=== PATIENT | female | born 1970 | race Caucasian/White ===

== ENCOUNTER 2017-10-19 23:06 | Emergency (ER) | payer BC, SELFPAY ==
[2017-10-19 23:21] VITALS: BP 105/64; PULSE 69; RESP 18; TEMP 37.4; O2SAT 99
--- NOTE | 2017-10-19 23:29 | DI.RAD.S_ITS ---
PROCEDURE: XR CHEST 2V INDICATIONS: shortness of breath TECHNIQUE: 2 views of the chest were acquired. COMPARISON: None. FINDINGS: Surgical changes and devices: Surgical clips overlies the left superior mediastinum. Lungs and pleura: No pleural effusions or pneumothorax. Lungs are clear. Mediastinum: Mediastinal contours are normal. Heart size is normal. Bones and chest wall: No suspicious bony abnormalities. Soft tissues appear unremarkable. IMPRESSION: No acute cardiopulmonary abnormality. Dictated by: Dylan Mendoza M.D. on 10/20/2017 at 8:20 Approved by: Dylan Mendoza M.D. on 10/20/2017 at 8:21
--- NOTE | 2017-10-20 01:27 | ED.SOB ---
HPI - SOB/Dyspnea General Chief Complaint: Shortness of Breath/Dyspnea Stated Complaint: COUGH, SICK Time Seen by Provider: 10/20/17 01:17 Source: patient Mode of arrival: ambulatory Limitations: no limitations History of Present Illness Patient is a 47-year-old female who presents with difficulty breathing. She feels like her neck is spasming. She said she had a fever about 1 week ago she has had increased fatigue for about a week. No documented fever. She feels like clock work her neck start spasming and she can't breathe. She overall feels tired and just not getting any better. No productive cough. She denies any sore throat MD Complaint: cough (Dry) Related Data Home Medications Medication Instructions Recorded Confirmed guaifenesin [Mucinex] 600 mg PO Q12H 10/19/17 10/19/17 Previous Rx's Medication Instructions Recorded doxycycline hyclate 100 mg PO BID #14 cap 10/20/17 prednisone 40 mg PO DAILY #10 tab 10/20/17 Allergies Allergy/AdvReac Type Severity Reaction Status Date / Time No Known Drug Allergies Allergy Verified 10/19/17 23:28 Review of Systems Review of Systems Constitutional Reports as per HPI, Reports fatigue, Reports fever(s) and Reports lethargy Eyes Denies change in vision, Denies eye discharge, Denies irritation and Denies loss of vision Cardiovascular Denies chest pain, Denies irregular heart rhythm, Denies lightheadedness, Denies palpitations and Denies orthopnea Respiratory Reports as per HPI Gastrointestinal Gastrointestinal: Denies abdominal pain, Denies change in bowel habits, Denies diarrhea, Denies nausea and Denies vomiting Musculoskeletal Denies back pain, Denies muscle weakness, Denies numbness and Denies tingling Integumentary/Breasts Denies pruritus, Denies erythema, Denies rash and Denies wounds Neurologic Denies loss of vision, Denies numbness and Denies tingling Endocrine Reports fatigue and Denies palpitations PFSH Medical History Neuroblastoma (Acute) Thyroid nodule (Acute) Social History Smoking Status: Never smoker Exam Initial Vital Signs Initial Vital Signs: Vital Signs Temperature 99.4 F 10/19/17 23:21 Pulse Rate 69 10/19/17 23:21 Respiratory Rate 18 10/19/17 23:21 Blood Pressure 105/64 10/19/17 23:21 Pulse Oximetry 99 10/19/17 23:21 GENERAL: Well-appearing, well-nourished and in no acute distress. HEENT: Head atraumatic,EOMI, pupils reactive, face symmetric, moist mucous membranes PHARYNX: No erythema, no tonsillar exudate, no cervical lymphadenopathy CARDIOVASCULAR: Regular rate and rhythm without murmurs, rubs or gallops. RESPIRATORY: Breath sounds equal bilaterally, no wheezes rales or rhonchi. ABDOMEN: Soft, nontender. Normoactive bowel sounds all 4 quadrants. No guarding or rebound. EXTREMITIES: Normal range of motion, no clubbing or edema. Neurovascularly intact NEUROLOGICAL: Alert and oriented x4.Normal gait and speech. Cranial nerves II through XII grossly intact. SKIN: Warm, dry, no laceration, no petechiae, no rashes or lesions. Course Orders Ordered: ED Orders 10/19/17 23:29 XR chest 2V Stat Discontinued Medications Albuterol (Ventolin) 2.5 mg INH NOW ONE Stop: 10/20/17 01:29 Last Admin: 10/20/17 01:39 Dose: 2.5 mg Albuterol (Ventolin Hfa Prepack) 1 box MISC SEEINSTR ONE Stop: 10/20/17 01:40 Last Admin: 10/20/17 01:41 Dose: 1 box Vital Signs - 8 hr 10/19/17 23:21 10/20/17 01:42 10/20/17 02:07 Temperature 99.4 F Pulse Rate 69 66 75 Respiratory Rate 18 16 18 Blood Pressure 105/64 Blood Pressure [Left Arm] 108/53 L Pulse Oximetry 99 98 MDM - SOB/Dyspnea Imaging Data Chest x-ray: Attestation: I personally reviewed and interpreted this imaging study as follows: My impression: No acute cardiopulmonary process she is feeling slightly better after albuterol. This has been ongoing for at least 1 week. Bronchospasm likely however due to severe fatigue will treat with atypical MDM Narrative Medical decision making narrative: Feeling much better after bronchodilators. She is taught by Respiratory how to use a spacer. At this time will treat for atypical pneumonia with doxycycline and bronchospasm with prednisone and albuterol. Discharge Plan Departure Patient Disposition: Home, Self-Care Clinical Impression: Atypical pneumonia Discharge Date/Time: 10/20/17 02:21 Interventions: ED Discharge Assessment Last Done: 07/27/18 02:20 Instructions: Atypical Pneumonia Activity Restrictions/Additional Instructions: *You have been diagnosed with atypical pneumonia, bronchitis *What to do: Rest, hydrate *Continue to take medications as directed -doxycycline 1 tablet twice a day for 1 week -prednisone 40 mg once a day for 5 days -albuterol every 4 hr with spacer if needed for spasm or shortness of breath *Follow up with your primary care provider in 2-3 days *Return to ER if you should have increasing shortness of breath, persistent fever or any new, worsening or concerning symptoms Prescriptions: New doxycycline hyclate 100 mg capsule 100 mg PO BID Qty: 14 RF: 0 prednisone 20 mg tablet 40 mg PO DAILY Qty: 10 RF: 0 No Action guaifenesin [Mucinex] 600 mg Tablet Extended Release 12hr 600 mg PO Q12H RF: 0 Referrals: [facility] [Outside]
[2017-10-20] MEDS: ALBUTEROL 2.5 MG/3 ML NEB (ADULT) INH (01:39)
[2017-10-20] MEDS: ALBUTEROL HFA PREPACK 1 BOX MISC (01:41)
[2017-10-20 01:42] VITALS: PULSE 66; RESP 16
[2017-10-20 02:07] VITALS: BP 108/53; PULSE 75; RESP 18; O2SAT 98
== END 2017-10-20 02:21 | disposition home or self-care (01) ==
PROVIDERS: Emergency Provider Emergency Medicine
DX: J18.9 Pneumonia, unspecified organism (principal)
CPT/HCPCS: 71046; 94640; 99282; 99283; J7613

== ENCOUNTER → 2019-04-18 09:33 | Outpatient (CLI) | payer BC, SELFPAY ==
--- NOTE | 2019-04-18 09:37 | DI.MG.S_ITS ---
BILATERAL DIGITAL SCREENING MAMMOGRAM 3D/2D WITH CAD: 04/18/2019 CLINICAL: Routine screening. Comparison is made to exams dated: 11/22/2016 mammogram, 09/24/2015 mammogram, 05/02/2016 mammogram, 09/15/2015 mammogram, and 05/07/2014 [facility]. The tissue of both breasts is heterogeneously dense. This may lower the sensitivity of mammography. Current study was also evaluated with a Computer Aided Detection (CAD) system. No significant masses, calcifications, or other findings are seen in either breast. There has been no significant interval change. IMPRESSION: NEGATIVE There is no mammographic evidence of malignancy. A 1 year screening mammogram is recommended. This exam was interpreted at Station ID: [id number]. NOTE: For mammograms, a report in lay terms will be sent to the patient. Approximately 15% of breast malignancies will not be visualized mammographically. In the management of a palpable breast mass, a negative mammogram must not discourage biopsy of a clinically suspicious lesion. Electronically Signed By: Bill bentley/terry:04/18/2019 18:37:58 letter sent: Normal Exam ACR BI-RADS Category 1: Negative 3341F
== END ==
PROVIDERS: Visit Provider Obstetrics & Gynecology
DX: Z12.31 Encounter for screening mammogram for malignant neoplasm of breast (principal)
CPT/HCPCS: 77063; 77067

== ENCOUNTER → 2020-03-16 09:09 | Outpatient (CLI) | payer BC, SELFPAY ==
--- NOTE | 2020-03-16 09:10 | DI.US.S_ITS ---
PROCEDURE: US PELVIC COMPLETE INDICATIONS: FIBROIDS TECHNIQUE: Real-time scanning was performed of the pelvic organs, with image documentation. Additional endovaginal scanning was necessary due to incomplete visualization of the adnexal and endometrial structures by transabdominal scanning. COMPARISON: None. FINDINGS: Transabdominal scanning: Limited scanning through the kidneys shows no hydronephrosis. No pathologic free abdominal or pelvic fluid. Endovaginal scanning: Uterus: Uterus is normal in size at 6.3 x 5.9 by 8.7 cm, retroverted. The endometrium measures 11.4 mm in combined thickness. Myometrial echotexture is heterogeneous, and there are several scattered uterine fibroids. At the midline posteriorly a subserosal 1.2 cm maximal dimension [place] oil can be seen. On the left and intramural 1.5 cm maximal dimension fibroid can be seen. Several nabothian cysts at the cervix are noted. Ovaries: The right ovary measures 2.1 x 1.7 x 4.4 cm and the left measures 2.0 x 1.7 x 4.7 cm. IMPRESSION: Heterogeneous myometrium, with several small uterine fibroids incidentally noted. No endometrial mass is seen. The endometrial lining is of abnormal thickness for a postmenopausal patient. Please correlate clinically for menopausal status. Dictated by: Eduardo Cameron M.D. on 03/16/2020 at 14:06 Approved by: Eduardo Cameron M.D. on 03/16/2020 at 14:16
== END ==
PROVIDERS: Referring Provider Obstetrics & Gynecology; Visit Provider Obstetrics & Gynecology
DX: D25.2 Subserosal leiomyoma of uterus (principal); D25.1 Intramural leiomyoma of uterus; N88.8 Other specified noninflammatory disorders of cervix uteri; R93.89 Abnormal findings on diagnostic imaging of other specified body structures
CPT/HCPCS: 76856

== ENCOUNTER → 2020-04-25 09:02 | Outpatient (CLI) | payer BC, SELFPAY ==
--- NOTE | 2020-04-25 09:03 | DI.MG.S_ITS ---
BILATERAL DIGITAL SCREENING MAMMOGRAM 3D/2D WITH CAD: 04/25/2020 CLINICAL: Routine screening. Family history of breast cancer. Comparison is made to exams dated: 04/18/2019 mammogram - [facility], 11/22/2016 mammogram, and 05/02/2016 [facility] - [facility]. The tissue of both breasts is heterogeneously dense. This may lower the sensitivity of mammography. Current study was also evaluated with a Computer Aided Detection (CAD) system. No significant masses, calcifications, or other findings are seen in either breast. There has been no significant interval change. IMPRESSION: NEGATIVE There is no mammographic evidence of malignancy. A 1 year screening mammogram is recommended. This exam was interpreted at Station ID: [id number]. NOTE: For mammograms, a report in lay terms will be sent to the patient. Approximately 15% of breast malignancies will not be visualized mammographically. In the management of a palpable breast mass, a negative mammogram must not discourage biopsy of a clinically suspicious lesion. Electronically Signed By: Diaz roman/terry:04/27/2020 08:33:37 letter sent: Normal Exam ACR BI-RADS Category 1: Negative 3341F
== END ==
PROVIDERS: PCP Family Medicine; Referring Provider Obstetrics & Gynecology; Visit Provider Obstetrics & Gynecology
DX: Z12.31 Encounter for screening mammogram for malignant neoplasm of breast (principal); Z80.3 Family history of malignant neoplasm of breast
CPT/HCPCS: 77063; 77067

== ENCOUNTER → 2021-07-09 14:59 | Outpatient (CLI) | payer OTHER, SELFPAY ==
--- NOTE | 2021-07-09 15:02 | DI.MG.S_ITS ---
BILATERAL DIGITAL SCREENING MAMMOGRAM 3D/2D WITH CAD: 07/09/2021 CLINICAL: Routine screening. Family history of breast cancer. Comparison is made to exams dated: 04/25/2020 mammogram, 04/18/2019 mammogram - [facility], and 11/22/2016 mammogram - [facility]. The tissue of both breasts is heterogeneously dense. This may lower the sensitivity of mammography. Current study was also evaluated with a Computer Aided Detection (CAD) system. No significant masses, calcifications, or other findings are seen in either breast. There has been no significant interval change. IMPRESSION: NEGATIVE There is no mammographic evidence of malignancy. A 1 year screening mammogram is recommended. This exam was interpreted at Station ID: [id number]. NOTE: For mammograms, a report in lay terms will be sent to the patient. Approximately 15% of breast malignancies will not be visualized mammographically. In the management of a palpable breast mass, a negative mammogram must not discourage biopsy of a clinically suspicious lesion. Electronically Signed By: Modesto Monsalve acr/penrad:07/09/2021 15:32:59 letter sent: Normal Exam ACR BI-RADS Category 1: Negative 3341F
== END ==
PROVIDERS: PCP Family Medicine; Referring Provider Obstetrics & Gynecology; Visit Provider Obstetrics & Gynecology
DX: Z12.31 Encounter for screening mammogram for malignant neoplasm of breast (principal); Z80.3 Family history of malignant neoplasm of breast
CPT/HCPCS: 77063; 77067

== ENCOUNTER → 2021-10-07 14:28 | Outpatient (CLI) | payer OTHER, SELFPAY ==
[2021-10-07 14:52] LABS: COVID19 -Nasal RAPID Negative (Negative)
== END ==
PROVIDERS: PCP Family Medicine; Visit Provider Surgery
DX: Z01.812 Encounter for preprocedural laboratory examination (principal); Z20.822 Contact with and (suspected) exposure to COVID-19
CPT/HCPCS: 87635; C9803

== ENCOUNTER 2021-10-08 08:07 | Day surgery (SDC) | payer OTHER, SELFPAY ==
[2021-10-08 08:23] VITALS: BP 113/69; PULSE 78; RESP 16; TEMP 36.2; O2SAT 98
--- NOTE | 2021-10-08 09:20 | PM.HP.1 ---
History of Present Illness History of Present Illness Date Patient Seen: 10/08/21 Time Patient Seen: 09:20 Chief complaint: SDC Narrative: first colonoscopy for colon cancer screening. No family history or symptoms Patient History Medical History Neuroblastoma Thyroid nodule Vaginal delivery Family & Social History Social History: household members children Tobacco & Substance use: Smoking Status Never smoker alcohol intake frequency holiday/special occasion Substance Use Type does not use Meds Home Medications and Allergies Home Medications Medication Instructions Recorded Confirmed Type sodium,potassium,mag sulfates 17.5 See Rx Instructions PO .COMPLEX 09/22/21 Rx gram-3.13 gram-1.6 gram oral soln #354 mL (Suprep Bowel Prep Kit) Allergies Allergy/AdvReac Type Severity Reaction Status Date / Time No Known Drug Allergies Allergy Verified 10/08/21 07:58 Review of Systems Review of Systems ROS: Yes All systems reviewed with the patient and are negative except as otherwise documented Exam Vital Signs (past 8 hours): - 10/08/21 08:23 Temperature 97.2 F L Pulse Rate 78 Respiratory Rate 16 Blood Pressure 113/69 Pulse Oximetry 98 Oxygen Delivery Method Room Air Oxygen Delivery Method Room Air Const General: cooperative and healthy appearing Nutritional Appearance: average body habitus HENIA Head: normocephalic and atraumatic Eyes Other: 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 Neck Neck: trachea midline Chest Chest: normal inspection of the chest Resp Effort & Inspection: normal respiratory effort and able to speak in complete sentences Cardio Rate: regular rate Rhythm: regular rhythm GI Inspection: normal to inspection Palpation: soft Skin General: no rashes or lesions noted and elasticity normal Neuro General: patient alert, patient awake and patient oriented x3 Extrem General: normal to inspection Psych Appearance: grossly normal Attitude: cooperative Judgment: judgment good Assessment & Plan Assessment & Plan narrative: screening for colon cancer using colonoscopy and moderate sedation COVID-19 COVID-19 status: Negative Time Spent With Patient Time with patient: less than 30 minutes Critical Care time: I spent a total of [] minutes of critical care time on this patient's care today; this time is exclusive of procedural time.
[2021-10-08] MEDS: fentaNYL 250 MCG/5 ML INJ 125 MCG IV (09:42)
[2021-10-08] MEDS: MIDAZOLAM 5 MG/5 ML VIAL IV (09:43)
--- NOTE | 2021-10-08 09:48 | PM.OP.COLON ---
Operative Date/Time/Diagnoses Date of procedure: 10/08/21 Time of procedure: 09:48 Pre-op diagnosis: Colon cancer screening Post-op diagnosis: same Procedure & Clinicians Study performed: Colonoscopy with moderate sedation Same procedure as scheduled: Yes Indications: Colon cancer screening Surgeon: Danyell Leija Procedure Notes SCOAP/Timeout: Done Procedure in detail: Prep diagnosis: Colon cancer screening Postop diagnosis: Same Operative procedure: Colonoscopy with moderate sedation Surgeon: Camila Leija MD Anesthetic: Fentanyl 125 mcg, Versed 5 mg. Findings: Normal colon. No polyps Procedure: Patient placed in lateral position. Rectal exam performed showing normal tone no masses. Colonoscope inserted into the rectum and advanced to ileocecal valve with minimal difficulty. Insufflation and extraction of scope including retroflex had the above findings Impression: Normal colonoscopy. Plan: Repeat colonoscopy in 10 years unless otherwise indicated by change in family history or clinical condition Sedation minutes: 14 Specimen(s): none sent Complications: none Post-procedure Recommendations: Colonoscopy in 10 years Follow up: as needed Disposition: PACU
[2021-10-08 09:50] VITALS: BP 89/52; PULSE 66; RESP 14; TEMP 36.4; O2SAT 96
[2021-10-08 09:55] VITALS: BP 97/53; PULSE 66; RESP 14; O2SAT 98
[2021-10-08 10:00] VITALS: BP 93/52; PULSE 63; RESP 16; O2SAT 97
[2021-10-08 10:09] VITALS: BP 96/53; PULSE 60; RESP 16; O2SAT 98
--- NOTE | 2021-10-08 10:17 | SUR.PHASEII ---
Pt A&Ox4, denies any distress and ready to discharge home. Discharge instructions reviewed with pt with time allowed for questions. IV DC'd intact. Pt left unit with all personal belongings to ER exit to meet family to transport home.
--- NOTE | 2021-10-08 10:18 | SUR.PHASEII ---
1L IVF infused, was not scanned prior to arrival to PACU
== END 2021-10-08 10:15 | disposition home or self-care (01) ==
PROVIDERS: PCP Family Medicine; Referring Provider Surgery; Visit Provider Surgery
PROC: 0DJD8ZZ Inspection of Lower Intestinal Tract, Via Natural or Artificial Opening Endoscopic (ICD-10-PCS; CPT 45378; principal; 2021-10-08 09:15)
DX: Z12.11 Encounter for screening for malignant neoplasm of colon (principal)
CPT/HCPCS: G0121; 99152; J2250; J3010

== ENCOUNTER → 2023-05-22 09:30 | Outpatient (CLI) | payer OTHER, SELFPAY ==
[2023-05-22 11:05] LABS: Add Manual Diff / Slide Review NO; Basophils Absolute Auto 0 /uL (0-100); Basophils Percent Auto 0.9 % (0-2); Eosinophils Absolute Auto 0 /uL (0-450); Eosinophils Percent Auto 0.8 % (2-4); Hematocrit 37.9 % (36-46); Hemoglobin 12.6 g/dL (12.0-16.0); Lymphocytes Absolute Auto 1800 /uL (1100-4500); Lymphocytes Percent Auto 33.8 % (25-40); Mean Corpuscular HGB Conc 33.3 % (30-36); Mean Corpuscular Hemoglobin 29.6 PG (26-34); Mean Corpuscular Volume 88.8 fL (80-100); Monocytes Absolute Auto 600 /uL (0-900); Monocytes Percent Auto 10.7 % (3-14); Neutrophils Absolute Auto 2800 /uL (1500-7000); Neutrophils Percent Auto 53.8 % (50-75); Platelet Count 188 X10^3/uL (150-400); Red Blood Cell Count 4.26 X10^6/uL (4.0-5.2); White Blood Cell Count 5.2 X10^3/uL (4.5-11.0)
[2023-05-22 11:07] LABS: Alanine Aminotransferase 14 IU/L (<35); Albumin 4.5 g/dL (3.5-5.0); Albumin Globulin Ratio 1.4 (1.0-2.8); Alkaline Phosphatase 51 U/L (38-126); Aspartate Aminotransferase 23 IU/L (14-36); BUN Creatinine Ratio 23.8 (6-22); Bilirubin Total 0.6 mg/dL (0.2-1.3); Blood Urea Nitrogen 19 mg/dL (7-17); Calcium 11.1 mg/dL (8.4-10.2); Carbon Dioxide 23 mmol/L (22-32); Chloride 104 mmol/L (98-107); Cholesterol 212 mg/dL (140-199); Estimated Glomerular Filt Rate > 60 mL/min (>60); Globulin 3.3 g/dL (1.7-4.1); Glucose 85 mg/dL (70-100); HDL Cholesterol 62 mg/dL (40-60); HEMOLYSIS < 15 (0-50); LDL Cholesterol Calculated 133 mg/dL (<100); Potassium 4.7 mmol/L (3.4-5.1); Sodium 136 mmol/L (137-145); Total Protein 7.8 g/dL (6.3-8.2); Triglycerides 83 mg/dL (35-150)
[2023-05-22 11:34] LABS: TSH w/ Reflex to FT4 0.82 uIU/mL (0.47-4.68)
== END ==
PROVIDERS: PCP Family Medicine; Referring Provider Family Medicine; Visit Provider Family Medicine
DX: E04.1 Nontoxic single thyroid nodule (principal); C74.90 Malignant neoplasm of unspecified part of unspecified adrenal gland
CPT/HCPCS: 36415; 80053; 80061; 84443; 85025

== ENCOUNTER → 2023-05-24 16:14 | Outpatient (CLI) | payer OTHER, SELFPAY ==
--- NOTE | 2023-05-24 16:17 | DI.MG.S_ITS ---
BILATERAL DIGITAL SCREENING MAMMOGRAM 3D/2D WITH CAD: 05/24/2023 CLINICAL: Routine screening. Family history of breast cancer. Comparison is made to exams dated: 07/09/2021 mammogram, 04/25/2020 mammogram, 04/18/2019 mammogram - [facility], 09/24/2015 left breast ultrasound, and 09/15/2015 mammogram - [facility]. Both breasts are heterogeneously dense, which may obscure small masses (category c / 51-75% glandular tissue). Current study was also evaluated with a Computer Aided Detection (CAD) system. There is an oval asymmetry in the left breast posterior depth central to the nipple seen on the craniocaudal view only measuring 1.2 cm. This is more prominent and was not seen on the remote prior ultrasound. Left breast scar marker. No other significant masses, calcifications, or other findings are seen in either breast. IMPRESSION: INCOMPLETE: NEEDS ADDITIONAL IMAGING EVALUATION The oval asymmetry in the left breast is indeterminate. Additional views with possible ultrasound are recommended. Based on the Tyrer Cuzick model (a risk assessment model) the patient's lifetime risk is 13.6% and her 10 year risk is 3.5%. According to the ACR, ACS, and NCCN guidelines, an annual breast MRI exam along with mammogram is recommended if the patient's lifetime risk is 20% or greater. This exam was interpreted at Station ID: [id number]. NOTE: For mammograms, a report in lay terms will be sent to the patient. Approximately 15% of breast malignancies will not be visualized mammographically. In the management of a palpable breast mass, a negative mammogram must not discourage biopsy of a clinically suspicious lesion. Electronically Signed By: Bill Cervantes M.D. [facility] [employer]/:05/25/2023 10:29:58 letter sent: Additional Imaging Needed ACR BI-RADS Category 0: Incomplete 3340F
[2023-05-24 19:01] LABS: Vitamin D 25 Hydroxy (D3) 32.7 ng/mL (30.0-100.0)
[2023-05-26 17:40] LABS: Ionized Calcium 5.8 mg/dL (4.5-5.6)
[2023-05-28 01:15] LABS: Calcium 10.6 mg/dL (8.7-10.2); Parathyroid Hormone, Intact 104 pg/mL (15-65)
== END ==
PROVIDERS: PCP Family Medicine; Referring Provider Family Medicine; Visit Provider Family Medicine
DX: Z12.31 Encounter for screening mammogram for malignant neoplasm of breast (principal); R92.333 Mammographic heterogeneous density, bilateral breasts; Z80.3 Family history of malignant neoplasm of breast; C74.90 Malignant neoplasm of unspecified part of unspecified adrenal gland; E04.1 Nontoxic single thyroid nodule; E83.52 Hypercalcemia
CPT/HCPCS: 36415; 77063; 77067; 82306; 82310; 82330; 83970

== ENCOUNTER → 2023-06-09 12:53 | Outpatient (CLI) | payer OTHER, SELFPAY ==
--- NOTE | 2023-06-09 | DI.MG.S_ITS ---
UNILATERAL LEFT DIGITAL DIAGNOSTIC MAMMOGRAM 3D/2D WITH ADDITIONAL VIEWS: 06/09/2023 CLINICAL: Additional evaluation requested from prior study. Comparison is made to exams dated: 05/24/2023 mammogram, 07/09/2021 mammogram, and 04/25/2020 mammogram - [facility]. The left breast is heterogeneously dense, which may obscure small masses (category c / 51-75% glandular tissue). There is a focal asymmetry in the left breast at 5 o'clock posterior depth. This is seen in additional views. No other significant masses or calcifications are seen in the breast. IMPRESSION: INCOMPLETE: NEEDS ADDITIONAL IMAGING EVALUATION The focal asymmetry in the left breast likely represents a cyst and is indeterminate. A targeted ultrasound of the left breast is recommended and will be performed immediately following this exam. Based on the Tyrer Cuzick model (a risk assessment model) the patient's lifetime risk is 13.6% and her 10 year risk is 3.5%. According to the ACR, ACS, and NCCN guidelines, an annual breast MRI exam along with mammogram is recommended if the patient's lifetime risk is 20% or greater. This exam was interpreted at Station ID: [id number]. NOTE: For mammograms, a report in lay terms will be sent to the patient. Approximately 15% of breast malignancies will not be visualized mammographically. In the management of a palpable breast mass, a negative mammogram must not discourage biopsy of a clinically suspicious lesion. Electronically Signed By: Mervat Ribera M.D. lk/:06/09/2023 17:11:01 ACR BI-RADS Category 0: Incomplete 3340F
--- NOTE | 2023-06-09 12:54 | DI.US.S_ITS ---
LIMITED ULTRASOUND OF LEFT BREAST AND AXILLA: 06/09/2023 CLINICAL: Patient returns today to evaluate a focal asymmetry in the left breast. Comparison is made to exams dated: 06/09/2023 mammogram, 05/24/2023 mammogram, 07/09/2021 mammogram, 04/25/2020 mammogram, 04/18/2019 mammogram - [facility], and 11/22/2016 mammogram - [facility]. Color flow ultrasound of the left breast axilla was performed on the areas of interest. Franklin scale images of the real-time examination were reviewed. There is a simple cyst in the left breast at 5 o'clock posterior depth. This simple cyst is anechoic. This correlates with mammography findings. Color flow imaging demonstrates that there is no vascularity present. IMPRESSION: BENIGN There is no sonographic evidence of malignancy. The simple cyst in the left breast is benign. Return to annual mammogram screening schedule is recommended. This exam was interpreted at Station ID: [id number]. Electronically Signed By: Mervat kaur/:06/09/2023 17:14:09 letter sent: Normal Exam Ultrasound BI-RADS: 2 Benign
== END ==
LOC: MAMMO 12:54
PROVIDERS: PCP Family Medicine; Referring Provider Family Medicine; Visit Provider Family Medicine
DX: R92.8 Other abnormal and inconclusive findings on diagnostic imaging of breast (principal); N60.02 Solitary cyst of left breast; R92.332 Mammographic heterogeneous density, left breast
CPT/HCPCS: 76642; 77065; G0279

== ENCOUNTER → 2023-12-25 08:40 | Outpatient (CLI) | payer OTHER, SELFPAY ==
--- NOTE | 2023-12-25 08:43 | DI.US.S_ITS ---
PROCEDURE: US THYROID INDICATIONS: Hyperparathyroidism, unspecified TECHNIQUE: Real-time scanning was performed of the thyroid gland, with image documentation. COMPARISON: Outside Facility, US, US THYROID, 05/01/2019, 10:37. FINDINGS: Thyroid: Right lobe measures 7.0 x 2.7 x 2.0 cm. Left lobe measures 5.7 x 2.5 x 2.2 cm. Isthmus is 0.6 cm thick. Echotexture is heterogeneous with several nodules, some as described below. Nodule number: 1 Location: Left superior pole Size: 2.5 x 2.0 x 1.7 cm, previously 3.3 x 1.7 x 1.7 cm. Composition: Solid Echogenicity: Isoechoic Shape: wider than tall. Margins: Indistinct Echogenic foci: None Total points: Three ACR TI-RADS category: Three Nodule number: 2 Location: Left midpole Size: 1.1 x 1.5 x 0.9 cm, previously 1.7 x 1.5 x 0.8 cm. Composition: Spongiform Total points: 0 ACR TI-RADS category: One Nodule number: 3 Location: Left inferior pole Size: 2.4 x 1.6 x 1.7 cm, previously 2.3 x 2.1 x 1.2 cm. Composition: Solid Echogenicity: Isoechoic Shape: wider than tall. Margins: Smooth Echogenic foci: No Total points: Three ACR TI-RADS category: Three Nodule number: 4 Location: Right superior pole Size: 1.0 x 1.0 x 0.6 cm. Previously not documented, but 0.9 x 0.5 x 0.7 cm when remeasured. Composition: Solid Echogenicity: Hypoechoic Shape: wider than tall. Margins: Smooth Echogenic foci: No Total points: Four ACR TI-RADS category: Four Nodule number: Five Location: Right isthmus Size: 3.2 x 2.7 x 1.6 cm, previously 2.6 x 2.5 x 1.4 cm. Composition: Solid Echogenicity: Isoechoic Shape: wider than tall. Margins: Smooth Echogenic foci: No Total points: Three ACR TI-RADS category: Three Nodule number: Six Location: Right dorsal inferior pole Size: 2.5 x 2.2 x 1.9 cm, previously 2.5 x 1.9 x 1.6 cm. Composition: Solid Echogenicity: Isoechoic Shape: wider than tall. Margins: Smooth Echogenic foci: No Total points: Three ACR TI-RADS category: Three IMPRESSION: Several spongiform and isoechoic nodules in a mildly enlarged thyroid gland, a few with mild growth since the exam from 2019. While some continue to meet size criteria for FNA, not all are amenable to percutaneous sampling, may have been sampled in the past, and none demonstrate dramatic or suspicious growth or have new suspicious features. A newly documented right superior pole nodule is ACR-TI-Rads category four, however was previously seen to be a spongiform nodule, benign. One year follow-up is recommended to establish five years of stability. ACR TI-RADS definitions and recommendations: TI-RADS 1 (benign): 0 points. FNA not needed. TI-RADS 2 (not suspicious): 2 points. FNA not needed. TI-RADS 3 (mildly suspicious): 3 points. * FNA if 2.5 cm or larger, follow up if 1.5 cm or larger (at 1, 3, and 5 years). TI-RADS 4 (moderately suspicious): 4-6 points. * FNA if 1.5 cm or larger, follow up if 1 cm or larger (at 1, 2, 3, and 5 years). TI-RADS 5 (highly suspicious): 7 points or more. * FNA if 1 cm or larger, follow up if 0.5 cm or larger (every year for 5 years). Dictated by: Samantha Villavicencio M.D. on 01/08/2024 at 13:45 Approved by: Samantha Villavicencio M.D. on 01/08/2024 at 14:13
[2023-12-25 10:53] LABS: Calcium 10.7 mg/dL (8.4-10.2); Magnesium 2.1 mg/dL (1.6-2.3)
[2023-12-27 08:36] LABS: Parathyroid Hormone Int 124 pg/mL (15-65)
== END ==
PROVIDERS: PCP Family Medicine
DX: E21.3 Hyperparathyroidism, unspecified (principal); E04.2 Nontoxic multinodular goiter
CPT/HCPCS: 36415; 76536; 82306; 82310; 83735; 83970

== ENCOUNTER → 2024-07-24 07:59 | Outpatient (CLI) | payer OTHER, SELFPAY ==
[2024-07-24 09:33] LABS: Add Manual Diff / Slide Review NO; Basophils Absolute Auto 0 /uL (0-100); Basophils Percent Auto 0.4 % (0-2); Eosinophils Absolute Auto 100 /uL (0-450); Eosinophils Percent Auto 1.3 % (2-4); Hematocrit 37.2 % (36-46); Hemoglobin 12.7 g/dL (12.0-16.0); Lymphocytes Absolute Auto 2000 /uL (1100-4500); Lymphocytes Percent Auto 32.1 % (25-40); Mean Corpuscular HGB Conc 34.1 % (30-36); Mean Corpuscular Hemoglobin 29.9 PG (26-34); Mean Corpuscular Volume 87.7 fL (80-100); Monocytes Absolute Auto 700 /uL (0-900); Monocytes Percent Auto 10.9 % (3-14); Neutrophils Absolute Auto 3400 /uL (1500-7000); Neutrophils Percent Auto 55.3 % (50-75); Platelet Count 194 X10^3/uL (150-400); Red Blood Cell Count 4.24 X10^6/uL (4.0-5.2); Red Cell Distribution Width 13.5 % (11.6-14.8); White Blood Cell Count 6.2 X10^3/uL (4.5-11.0)
[2024-07-24 09:59] LABS: Alanine Aminotransferase 15 IU/L (<35); Albumin 4.4 g/dL (3.5-5.0); Albumin Globulin Ratio 1.8 (1.0-2.8); Alkaline Phosphatase 49 U/L (38-126); Aspartate Aminotransferase 23 IU/L (14-36); BUN Creatinine Ratio 18.1 (6-22); Bilirubin Total 0.6 mg/dL (0.2-1.3); Blood Urea Nitrogen 15 mg/dL (7-17); Carbon Dioxide 24 mmol/L (22-32); Chloride 106 mmol/L (98-107); Cholesterol 194 mg/dL (140-199); Estimated Glomerular Filt Rate > 60 mL/min (>60); Globulin 2.5 g/dL (1.7-4.1); Glucose 83 mg/dL (70-99); HDL Cholesterol 55 mg/dL (40-60); HEMOLYSIS < 15 (0-50); LDL Cholesterol Calculated 111 mg/dL (<100); Potassium 5.1 mmol/L (3.4-5.1); Sodium 138 mmol/L (137-145); Total Protein 6.9 g/dL (6.3-8.2); Triglycerides 138 mg/dL (35-150)
[2024-07-24 10:16] LABS: Follicle Stimulating Hormone 9.42 mIU/mL; Luteinizing Hormone 6.66 mIU/mL; Progesterone, Total 1.35 ng/mL
[2024-07-24 10:30] LABS: Cortisol AM (Before 10AM) 9.94 ug/dL (4.46-22.7)
[2024-07-24 10:35] LABS: TSH w/ Reflex to FT4 1.27 uIU/mL (0.47-4.68)
[2024-07-26 20:38] LABS: Estrogen 503 pg/mL (.)
== END ==
PROVIDERS: PCP Family Medicine; Referring Provider Family Medicine; Visit Provider Family Medicine
DX: Z13.6 Encounter for screening for cardiovascular disorders (principal); E04.1 Nontoxic single thyroid nodule; C74.90 Malignant neoplasm of unspecified part of unspecified adrenal gland; L30.0 Nummular dermatitis
CPT/HCPCS: 36415; 80053; 80061; 82533; 82672; 83001; 83002; 84144; 84443; 85025

== ENCOUNTER → 2024-08-21 | Outpatient (CLI) | payer OTHER, SELFPAY ==
--- NOTE | 2024-08-21 16:47 | DI.MG.S_ITS ---
MM screening mammo BI: 08/21/2024. BI-RADS: 1 CLINICAL: 54-year old female for bilateral screening mammogram. Tyrer-Cuzick lifetime risk of 10.3%. No personal or first-degree family history of breast cancer. The patient had a prior left breast biopsy. PRIOR EXAMS 06/09/2023, 05/24/2023, 07/09/2021, 04/25/2020, 04/18/2019. MAMMOGRAPHY TECHNIQUE: 2D and 3D (tomosynthesis) digital mammographic views obtained, with additional images as needed for full coverage. Current study was also evaluated with a Computer Aided Detection (CAD) system. DENSITY C. The breasts are heterogeneously dense, which may obscure small masses. MAMMOGRAPHY FINDINGS Bilateral: No suspicious mass, asymmetry, microcalcification, or other abnormality seen. IMPRESSION: * No evidence of malignancy. RECOMMENDATIONS Bilateral * Annual screening mammography. OVERALL ASSESSMENT CATEGORY BI-RADS-1: Negative. The [employer] recommends annual screening mammography beginning at age 40 for women with average risk of breast cancer. ELECTRONICALLY SIGNED: Alcon Espinal M.D. on 08/22/2024 at 07:12:49 AM PT Interpreting Station ID: [id number]
== END ==
LOC: MAMMO 16:46
PROVIDERS: PCP Family Medicine; Referring Provider Family Medicine; Visit Provider Family Medicine
DX: Z12.31 Encounter for screening mammogram for malignant neoplasm of breast (principal); R92.333 Mammographic heterogeneous density, bilateral breasts
CPT/HCPCS: 77063; 77067